=== PATIENT | female | born 1955 | race Caucasian/White ===

== ENCOUNTER 2020-12-31 17:01 | Inpatient (IN) | payer BC, OTHER ==
[~2020-12-31] VITALS: Ht 160 cm; Wt 97.0 kg
[~2020-12-31 17:01] MED LIST: Aspir 8181 MG PO
[2020-12-31] MEDS ORDERED: LEVFLO500 PO (17:17)
[2020-12-31 19:32] LABS: BASOPHILS ABSOLUTE AUTO 0.05 K/mm3 (0.00-0.23); BASOPHILS PERCENT AUTO 1 % (0-2); EOSINOPHILS ABSOLUTE AUTO 0.01 K/mm3 (0.00-0.68); EOSINOPHILS PERCENT AUTO 0 % (0-6); Hemoglobin 14.3 g/dL (11.5-16.0); IMMATURE GRAN PERCENT AUTO 2 % (0-1); LYMPHOCYTES ABSOLUTE AUTO 1.34 K/mm3 (0.84-5.20); LYMPHOCYTES PERCENT AUTO 12 % (21-46); MONOCYTES ABSOLUTE AUTO 0.64 K/mm3 (0.16-1.47); MONOCYTES PERCENT AUTO 6 % (4-13); Mean Corpuscular HGB 29.9 pg (26.0-34.0); Mean Corpuscular HGB Conc 33.3 g/dL (31.5-36.5); Mean Corpuscular Volume 90 fL (80-100); Mean Platelet Volume 8.3 fL (9.1-12.4); NEUTROPHILS ABSOLUTE AUTO 8.82 K/mm3 (1.96-9.15); NEUTROPHILS PERCENT AUTO 80 % (41-73); Platelet Count 325 K/mm3 (150-400); Red Blood Cell Count 4.78 M/mm3 (3.80-5.20); White Blood Cell Count 11.06 K/mm3 (4.00-11.30)
[2020-12-31 19:59] LABS: Alanine Aminotransfer (ALT/SGP 67 U/L (12-78); Albumin, Blood 2.9 g/dL (3.4-5.0); Albumin/Globulin Ratio 0.5 (0.8-1.8); Alk Phos 77 U/L (50-136); Anion Gap 8 mmol/L (6-16); Aspartate Aminotrans (AST/SGOT 66 U/L (12-37); Bilirubin, Total 0.8 mg/dL (0.1-1.0); Blood Urea Nitrogen 19 mg/dL (8-24); Bun/Creatinine Ratio 19.3 (12.0-20.0); CO2, Blood 27 mmol/L (21-32); Calcium, Blood 9.5 mg/dL (8.5-10.1); Chloride, Blood 102 mmol/L (98-108); Creatinine, Blood 0.98 mg/dL (0.40-1.00); Globulin, Blood 5.3 g/dL (2.2-4.0); Glomerular Filtration Rate >60 (60-); Glucose, Blood 112 mg/dL (70-99); Potassium, Blood 3.3 mmol/L (3.5-5.5); Sodium, Blood 137 mmol/L (136-145); Total Protein, Blood 8.2 g/dL (6.4-8.2); Troponin I <0.015 ng/mL (0.000-0.040)
--- NOTE | 2021-01-01 00:07 | NUR ---
ADMIT PT ARRIVED TO FLOOR @2355 VIA W/C. SBY ASSIST TO RESTROOM & THEN TO BED. ORIENTED TO CALL LIGHT & RM. ADMITTED FOR POSSIBE COVID. ON DROPLET PERCAUTIONS. WILL MONITOR.
[2021-01-01 00:24] LABS: SARS-Cov-2 (COVID-19) PCR, MMC NEGATIVE (NEGATIVE)
[2021-01-01 05:53] LABS: Anion Gap 7 mmol/L (6-16); Blood Urea Nitrogen 16 mg/dL (8-24); Bun/Creatinine Ratio 17.7 (12.0-20.0); CO2, Blood 26 mmol/L (21-32); Calcium, Blood 8.9 mg/dL (8.5-10.1); Chloride, Blood 104 mmol/L (98-108); Glomerular Filtration Rate >60 (60-); Glucose, Blood 132 mg/dL (70-99); Potassium, Blood 3.9 mmol/L (3.5-5.5); Sodium, Blood 137 mmol/L (136-145)
--- NOTE | 2021-01-01 05:54 | NUR ---
SHIFT SUMMARY AOX4. VSS. TELE SB @56. SPO2 @92% ON 4L O2, DOES NOT WEAR O2 @BASELINE. SPO2 DROPS TO 70'S ON RA PER REPORT FROM ER. LUNGS DIM IN BASES. VERY DYSPNIC c ACTIVITY, HAS PURSED LIP BREATHING c AMBULATION TO RESTROOM. REPORTS LOSS OF TASTE & APPETITE, ALONG c OCCASIONAL DIARRHEA SINCE FEELING SICK. DENIES N/V/D OR PAIN @THIS TIME. CALL LIGHT IN REACH & PT ABLE TO MAKE NEEDS KNOWN.
--- NOTE | 2021-01-01 17:37 | NUR ---
PT IS ABLE TO SUSTAIN O2 LEVELS ABOVE 90% ON 2.5 LITERS. SHE HAD SHOWER WITH STAFF IN ROOM WHILE ON O2 4 L. THE SHIFT WENT ON PT FELT LIKE SHE WAS IMPROVING SO WE LOWERED HER 02 TO 2.5. PT WAS ABLE TO MAINTAIN IN 92-94 ON THE 2 L. WALKED TO THE RESTROOM AND DID DROP TO 89 WITH THE AMBULATION. ONCE SEATED WENT BACK UP TO 93% WITHIN 2 MINUTES. PT HAS HAD NO COMPLAINTS THIS SHIFT. SHE IS PLEASANT AND COOPERATIVE WITH CARES. CALL LIGHT WITHIN REACH.
--- NOTE | 2021-01-02 06:28 | NUR ---
SHIFT SUMMARY NO ACUTE CHANGES. AOX4. VSS. TELE NSR @71. SPO2 @91% ON 2.5L O2. LUNGS DIM IN BASES. REPORTS DYSPNEA c ACTIVITY. IND IN RM. REPORTS BAHENA THIS AM, WILL GIVE TYLENOL PER ORDERS. CALL LIGHT IN REACH & PT ABLE TO MAKE NEEDS KNOWN.
[2021-01-02 08:23] LABS: BASOPHILS ABSOLUTE AUTO 0.05 K/mm3 (0.00-0.23); BASOPHILS PERCENT AUTO 1 % (0-2); EOSINOPHILS PERCENT AUTO 0 % (0-6); Hematocrit 38.4 % (33.0-51.0); Hemoglobin 12.9 g/dL (11.5-16.0); IMMATURE GRAN ABSOLUTE AUTO 0.27 K/mm3 (0.00-0.10); IMMATURE GRAN PERCENT AUTO 3 % (0-1); LYMPHOCYTES ABSOLUTE AUTO 1.74 K/mm3 (0.84-5.20); LYMPHOCYTES PERCENT AUTO 18 % (21-46); MONOCYTES ABSOLUTE AUTO 0.64 K/mm3 (0.16-1.47); MONOCYTES PERCENT AUTO 7 % (4-13); Mean Corpuscular HGB 30.6 pg (26.0-34.0); Mean Corpuscular HGB Conc 33.6 g/dL (31.5-36.5); Mean Corpuscular Volume 91 fL (80-100); Mean Platelet Volume 8.4 fL (9.1-12.4); NEUTROPHILS PERCENT AUTO 73 % (41-73); Platelet Count 346 K/mm3 (150-400); RDW Coefficient Variation 12.1 % (11.7-14.2); RDW Standard Deviation 40.8 fL (35.1-46.3); Red Blood Cell Count 4.22 M/mm3 (3.80-5.20)
[2021-01-02 08:47] LABS: Alanine Aminotransfer (ALT/SGP 75 U/L (12-78); Albumin, Blood 2.4 g/dL (3.4-5.0); Albumin/Globulin Ratio 0.6 (0.8-1.8); Alk Phos 63 U/L (50-136); Anion Gap 4 mmol/L (6-16); Aspartate Aminotrans (AST/SGOT 52 U/L (12-37); Bilirubin, Total 0.5 mg/dL (0.1-1.0); Blood Urea Nitrogen 19 mg/dL (8-24); Bun/Creatinine Ratio 20.3 (12.0-20.0); CO2, Blood 30 mmol/L (21-32); Calcium, Blood 8.7 mg/dL (8.5-10.1); Chloride, Blood 104 mmol/L (98-108); Creatinine, Blood 0.94 mg/dL (0.40-1.00); Globulin, Blood 4.2 g/dL (2.2-4.0); Glomerular Filtration Rate >60 (60-); Glucose, Blood 97 mg/dL (70-99); Potassium, Blood 3.6 mmol/L (3.5-5.5); Sodium, Blood 138 mmol/L (136-145); Total Protein, Blood 6.6 g/dL (6.4-8.2)
--- NOTE | 2021-01-02 18:21 | NUR ---
SHIFT SUMMARY PATIENT IS ALERT AND ORIENTATED X4. NO ACUTE CHANGES. DYSPNEA W ACTIVITY. INDEPENDENT IN ROOM. REPORTED HEADACHE IN MORNING AND RESOLVED WITH TYLENOL. NO FURTHER HEADACHES REPORTED. TITRATED 02 DOWN TO 2LITERS FROM 2.5LITERS. PATIENT SATTING 91-94 ON 2 LITERS. PATIENT HAS NO COMPLAINTS OF PAIN, NAUSEA, VOMITTING. PATIENT HAS HAD NO EPISODES OF DIARRHEA THIS SHIFT. VITAL SIGNS REVIEWED.
--- NOTE | 2021-01-02 18:36 | NUR ---
PAD ASSEMBLER DOC REVIEW THIS RN ASSESSED THE PT. THIS RN REVIEWED & AGREES WITH PAD ASSEMBLER'S ASSESSMENT AND DOCUMENTATION FOR THE SHIFT.
--- NOTE | 2021-01-03 04:01 | NUR ---
SHIFT SUMMARY PATIENT HAD NO ACUTE CHANGES OBSERVED. AXOX 4 AND INDEPENDENT IN THE ROOM. ON 2L O2 NC AND RA BASELINE. PIV REMAINS INTACT. RUG INSPECTOR HELPER REPORTS SR 66. VSS/AFEBRILE. DENIES PAIN, SOB, AND N/V. DROPLET PRECAUTIONS. COOPERATIVE WITH CARE. CALL LIGHT IN REACH. BED IN LOWEST POSITION. WILL CONTINUE TO MONITOR UNTIL DAY SHIFT NURSE ASSUMES CARE.
--- NOTE | 2021-01-03 09:36 | NUR ---
O2 TITRATED TO 1L AT 0904 PATIENT WAS TITRATED TO 1L 02 AND SATTING AT 93 PERCENT WHILE RESTING. PATIENT WAS REASSESSED AT 0930 AND PATIENT CONTINUES TO SAT AT 94 PERCENT AT 1L. CALL LIGHT IN REACH.
--- NOTE | 2021-01-03 17:55 | NUR ---
SHIFT SUMMARY PATIENT IS A/OX4. PATIENT HAS RESTED DURING SHIFT. 02 HAS BEEN TITRATED DOWN TO 1 LITER AND HAS BEEN SATTING IN THE LOW 90S. PATIENT IS INDEPENDENT IN ROOM. PATIENT DENIES PAIN, SOB, AND N/V. PT COOPERATIVE WITH CARE. CALL LIGHT WITH IN REACH. VITAL SIGNS REVIEWED. BED IS IN LOWEST POSITION.
--- NOTE | 2021-01-03 18:13 | NUR ---
THREAD SEPARATOR DOC REVIEW THIS RN ASSESSED THE PT. THIS RN REVIEWED & AGREES WITH THREAD SEPARATOR DOCUMENTATION FOR THIS SHIFT.
--- NOTE | 2021-01-04 04:16 | NUR ---
SHIFT SUMMARY PATIENT HAD NO ACUTE CHANGES OBSERVED. AXOX 4 AND INDEPENDENT IN ROOM. ON 1L O2 NC AND ROOM AIR BASELINE. PIV REMAINS INTACT. DROPLET PRECAUTIONS. PATIENT WATCHING TV T/O SHIFT. DENIES PAIN, SOB, AND N/V. VSS/AFEBRILE. COOPERATIVE WITH CARE. CALL LIGHT IN REACH. BED IN LOWEST POSITION. WILL CONTINUE TO MONITOR UNTIL DAY SHIFT NURSE ASSUMES CARE.
[2021-01-04] MEDS ORDERED: DEXA6 PO (14:02)
--- NOTE | 2021-01-04 15:29 | NUR ---
DISCHARGE NOTE PT DC HOME. PT WAS ON ROOM AIR FOR MOST OF THE SHIFT AND WHEN SPOT CHECKED AFTER SHOWER WAS 90-92%. WENT OVER DC PACKET WITH PT AND TOOK OUT IV BEFORE PT DC HOME. PT TOOK BELONGINGS WITH HER AND SEEMED HAPPY TO BE GOING HOME. TRAVERSE ROD ASSEMBLER TOOK PT TO EXIT VIA WHEELCHAIR.
== END 2021-01-04 15:29 | disposition home or self-care (01) | DRG 177 ==
LOC: ER 17:01 → ERHOLD 17:02 → MEDS 23:50 → ENPENDDIS 01-04 13:09 → MEDS 01-04 15:29
PROVIDERS: Internal Medicine; Physician Assistant; ADMIT Family Medicine
PROC: XW033E5 Introduction of Remdesivir Anti-infective into Peripheral Vein, Percutaneous Approach, New Technology Group 5 (ICD-10-PCS; principal; 2021-01-01)
PROC: 8E0ZXY6 Isolation (ICD-10-PCS; 2021-01-01)
DX: U07.1 COVID-19 (principal); J96.01 Acute respiratory failure with hypoxia; J12.82 Pneumonia due to coronavirus disease 2019; E87.6 Hypokalemia; R73.9 Hyperglycemia, unspecified; Z87.891 Personal history of nicotine dependence; Z98.891 History of uterine scar from previous surgery; Z86.718 Personal history of other venous thrombosis and embolism; Z79.82 Long term (current) use of aspirin
CPT/HCPCS: 36415; 71045; 71260; 80048; 80053; 84145; 84484; 85025; 85379; 93005; 93010; 94760; 96365; 96367; 96372; 99285-25; A9270; G0378; J0456; J0696; J1650; J7050; Q9967; U0004

== ENCOUNTER → 2021-07-15 | Outpatient (CLI) | payer OTHER, MEDICARE ==
[~2021-07-15] MED LIST changes: +DEXA6 PO; +LEVFLO500 PO
== END | disposition home or self-care (01) ==
LOC: LAB SHORT 11:21
DX: D22.5 Melanocytic nevi of trunk (principal)
CPT/HCPCS: 88305

== ENCOUNTER → 2021-09-02 | Outpatient (CLI) | payer OTHER ==
[~2021-09-02] MED LIST changes: +Aspir 8181 MG
== END | disposition home or self-care (01) ==
LOC: LAB SHORT 08:08
DX: D22.5 Melanocytic nevi of trunk (principal)
CPT/HCPCS: 88305

== ENCOUNTER → 2022-03-03 | Outpatient (CLI) | payer OTHER | END | disposition home or self-care (01) | LOC: LAB SHORT 12:04 → PLD 12:04 | DX: L82.1 Other seborrheic keratosis (principal) | CPT/HCPCS: 88305 ==